=== PATIENT | female | born 1950 | race Caucasian/White ===

== ENCOUNTER → 2016-08-30 | Outpatient (CLI) | payer BC | LOC: MC.RAD 07:00 | DX: Z12.31 Encounter for screening mammogram for malignant neoplasm of breast (principal); R92.0 Mammographic microcalcification found on diagnostic imaging of breast ==

== ENCOUNTER → 2017-08-31 | Outpatient (CLI) | payer BC | LOC: MC.RAD 10:20 | DX: Z12.31 Encounter for screening mammogram for malignant neoplasm of breast (principal) ==

== ENCOUNTER → 2018-10-09 | Outpatient (CLI) | payer BC | LOC: MC.RAD 14:12 | DX: Z12.31 Encounter for screening mammogram for malignant neoplasm of breast (principal) ==

== ENCOUNTER → 2019-10-25 | Outpatient (CLI) | payer BC | LOC: MC.RAD 08:35 | DX: Z12.31 Encounter for screening mammogram for malignant neoplasm of breast (principal) ==

== ENCOUNTER → 2020-10-28 | Outpatient (CLI) | payer MEDICARE, OTHER, BC | LOC: MC.RAD 08:45 | DX: Z12.31 Encounter for screening mammogram for malignant neoplasm of breast (principal) ==

== ENCOUNTER → 2021-10-29 | Outpatient (CLI) | payer MEDICARE, OTHER | LOC: MC.RAD 07:44 | DX: Z12.31 Encounter for screening mammogram for malignant neoplasm of breast (principal) ==

== ENCOUNTER 2022-11-11 06:38 | Outpatient (CLI) | payer MEDICARE ==
[~2022-11-11] VITALS: Ht 157.5 cm; Wt 50.0 kg
[2022-11-11] VITALS (17 sets, daily range): BP systolic 127–161; BP diastolic 83–104; PULSE 86–108; TEMP 98.1
[~2022-11-11 06:38] MED LIST: ATIVAN 1MG T1 MG/TAB PO; CLARITIN 1010 MG/TAB PO; FLEXERIL 1010 MG/TAB PO; PRILOSEC10 MG PO
--- NOTE | 2022-11-11 12:37 | NUR ---
Pt discharged at approx 1220. Pt's chest dressing was clean, dry, and intact upon discharge. She reported no chest pain, SOB, or coughing up blood upon discharge. She stated that her sputum was blood tinged but she would monitor it to make sure that no increase occurs. Pt consumed ice chips and sips of water prior to dischrge and tolerated them well. Pt voided prior to discharge as well. Pt was wheeled to front entrance but had no trouble ambulating. met her at the entrance with their car. Pt verbalized understanding of discharge instruction/education and was free from complaint and concerns upon discharge.
== END 2022-11-11 12:20 | disposition home or self-care (01) ==
LOC: COL.RAD 06:38
DX: R91.8 Other nonspecific abnormal finding of lung field (principal); R04.2 Hemoptysis
CPT/HCPCS: J3010

== ENCOUNTER 2022-12-27 14:18 | Day surgery (SDC) | payer MEDICARE ==
[~2022-12-27] VITALS: Ht 157.5 cm; Wt 51.7 kg
[2022-12-27 10:17] VITALS: BP 135/79; PULSE 79; TEMP 97.2
[2022-12-27 10:32] VITALS: BP 149/77; PULSE 78
[2022-12-27 10:47] VITALS: BP 150/80; PULSE 76
[2022-12-27 11:00] VITALS: BP 137/78; PULSE 76
[2022-12-27 11:05] VITALS: BP 141/89; PULSE 95; TEMP 97.9
--- NOTE | 2022-12-27 11:20 | NUR ---
1017 RETURNS TO ROOM 4 PER CART. DROWSY, AROUSES SPONTANEOUSLY. RESP UNLABORED. FAMILIARIZED WITH SURROUNDINGS. VITAL SIGNS OBTAINED. HOB ELEVATED 30 DEGREES. SMALL DRESSING, LEFT CHEST CLEAN DRY AND INTACT. DENIES PAIN OR DYSPNEA. CALL LIGHT AT SIDE. IN ROOM. 1030 TOLERATES PO SODA WITHOUT NAUSEA 1045 AWAKE, ALERT. REPOSITIONS SELF. HOB ELEVATED 60 DEGREES. 1100 DISCHARGE INSTRUCTIONS REVIEWED. PATIENT VERBALIZES UNDERSTANDING. COPY PROVIDED IN DISCHARGE FOLDER. 1110 SITS ON EDGE OF BED. DRESSES SELF. AMBULATES TO BATHROOM WITH STANDBY ASSIST
== END 2022-12-27 14:44 | disposition home or self-care (01) ==
LOC: SDCO 14:18
DX: C34.11 Malignant neoplasm of upper lobe, right bronchus or lung (principal); C77.1 Secondary and unspecified malignant neoplasm of intrathoracic lymph nodes; Z87.891 Personal history of nicotine dependence
CPT/HCPCS: C1788; J0690; J1644; J2704

== ENCOUNTER 2023-01-24 00:02 | Emergency (ER) | payer MEDICARE ==
[~2023-01-24] VITALS: Ht 157.5 cm; Wt 53.2 kg
[2023-01-24 00:04] VITALS: TEMP 98.2
[2023-01-24 01:10] VITALS: BP 159/92; PULSE 95
== END 2023-01-24 01:21 | disposition home or self-care (01) ==
LOC: COL.ER 00:02
DX: C34.90 Malignant neoplasm of unspecified part of unspecified bronchus or lung (principal); I10 Essential (primary) hypertension

== ENCOUNTER 2024-06-24 15:01 | Outpatient (CLI) | payer MEDICARE ==
[~2024-06-24] VITALS: Ht 157.5 cm; Wt 65.4 kg
[~2024-06-24 15:01] MED LIST changes: +BUSPAR5 MG PO; +COZAAR 50MG50 MG/TAB PO; +FOLIC ACID 11 MG/TA1 PO; +KLONOPIN WAFERS1 MG PO; +LIPITOR20 MG PO; +PHOSLO667 MG PO; +VITAMIN B-121500 MCG PO
[2024-06-24 15:15] VITALS: BP 121/85; PULSE 95; TEMP 98.1
[2024-06-24] MEDS ORDERED: ELIQUIS 5MG PO (15:20)
[2024-06-24] MEDS ORDERED: LEXAPRO 10MG10 MG PO (15:21)
[2024-06-24] MEDS ORDERED: COMPAZINE 110 MG/TAB PO (15:22)
[2024-06-24] MEDS ORDERED: MAG-OX 400400 MG/TAB PO (15:23)
[2024-06-24] MEDS ORDERED: TRIAMC 0.1 454 TOP (15:25)
[2024-06-24] MEDS ORDERED: MOBIC 7.5MG7.5 MG PO (15:26)
[2024-06-24] MEDS ORDERED: PROLIA60 MG/ML SQ (15:26)
[2024-06-24] MEDS ORDERED: Denosumab 60 MG/ML SYRINGE SQ ONE (15:30)
--- NOTE | 2024-06-24 15:45 | NUR ---
Pt tolerated prolia without issue. She exits dept with steady gait. Free of complaints at discharge.
== END 2024-06-24 15:45 | disposition home or self-care (01) ==
LOC: EUO 15:01
DX: M81.0 Age-related osteoporosis without current pathological fracture (principal)
CPT/HCPCS: J0897